=== PATIENT | female | born 1995 | race Caucasian/White ===

== ENCOUNTER 2017-03-04 21:00 | Inpatient (IN) | payer OTHER ==
--- NOTE | ~2017-03-04 | HP ---
Unit #: [id number] #: [id number] Patient: MAKENNA OSEI [id number] [place] [address] [id number] MR#: [id number] NAME: MAKENNA OSEI ROOM: P259 Age: 21 Sex: F Admission Date: 03/05/2017 : 1995 Attending Physician: Mian Hobson M.D. Admitting Physician: Mian Hobson M.D. Primary Care Physician: Generic Doctor Not In System HISTORY AND PHYSICAL HISTORY OF PRESENT ILLNESS Makenna is a 21 year old admitted to [address] [place] [address] with depression and verbalizing wanting to hurt herself. She is admitted totally irrational and belligerent. She is a poor historian so her history is taken from her chart. PAST MEDICAL HISTORY Nothing significant. PAST SURGICAL HISTORY Nothing reported. ALLERGIES No known drug allergies. SOCIAL HISTORY It is unclear if she smokes or drinks alcohol. She does admit to using marijuana. FAMILY HISTORY Medically not known. REVIEW OF SYSTEMS She does not answer any questions appropriately. There are no reports of nausea, vomiting or diarrhea. She has had no cough or increased temperature. CURRENT MEDICATIONS 1. Zyprexa Zydis 5 mg q 6 hours p.r.n. 2. Milk of Magnesia p.r.n. 3. Maalox p.r.n. 4. Tylenol p.r.n. PHYSICAL EXAMINATION GENERAL: Alert, petite in no apparent distress. VITAL SIGNS: Blood pressure 132/80, heart rate 80, respirations 16, temperature 98.6. SKIN: Warm and dry without rash or lesion. HEENT: Normocephalic. TMs not viewed. Oral and nasal passages clear. Conjunctivae clear. Pupils equal, round and reactive to light and accommodation. Extraocular movements intact. Unit #: [id number] #: [id number] Patient: MAKENNA OSEI NECK: Supple without lymphadenopathy or thyromegaly. HEART: Regular rate and rhythm without murmur. LUNGS: Clear. ABDOMEN: Soft, nontender. : Not done. EXTREMITIES: No evidence of cyanosis, clubbing or edema. Moves all extremities without focal deficit. NEUROLOGICAL: Unable to complete extended exam. She does move all extremities without focal deficit. 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 IMPRESSION Psychiatric admission. RECOMMENDATIONS PSYCHIATRIC: Per psychiatrist. MEDICAL: I see no contraindications to participating in facility's activities. MEDICAL PROGNOSIS Good. MEDICAL CONDITION Stable. Dictated by... Sena Lundberg P.A.-C. for Haja Gonzalez/claudine TD: 03/06/2017 00:41 JOB #: [id number] HISTORY AND PHYSICAL Page 1 of 1 X Sena Lundberg X HISTORY AND PHYSICAL
--- NOTE | ~2017-03-04 | A ---
[facility] Nutrition Therapy DATE: 03/05/17 Patient: PINO DENTON Physician: CASSIDY Address: [address] Room/Bed: [address], Zip: [place] [address] Admit Date: 03/05/17 Date of : [birth year] Height: Weight: NUTRITIONAL ASSESSMENT: REASON: UNINTENTIONAL WEIGHT LOSS PMH: HX SELF-HARM Anthropometrics: UNKNOWN Labs: NO LABS AVAILABLE Meds: THERESA Assessment: PATIENT IS A 21 Y/O FEMALE ADMITTED FOR SI AND AMS. PATIENT IS CURRENTLY UNEMPLOYED, LIVES WITH HER PARENTS, AND ATTENDS [facility]. SHE HAS HAD RECENT MARIJUANA USE AND SUSPECTED LSD USE, HOWEVER SHE DENIES CURRENT SUBSTANCE ABUSE. PER NEEDS ASSESSMENT PATIENT STATED A POOR APPETITE WITH AN UNKNOWN AMOUNT OF WEIGHT LOSS, AND SHE HAS NOT BEEN SLEEPING. IT WAS ALSO STATED THAT A FRIEND REPORTED THAT PATIENT HAD NOT EATEN OR SLEPT OVER THE WEEKEND. PATIENT'S CURRENT HT AND WT ARE UNKNOWN D/T PATIENT'S AGGRESSIVE BEHAVIORS AND SHE IS NOT COOPERATING. NURSING ESTIMATED PATIENT TO BE 61"-62" TALL AND 100-105#. THIS WOULD MAKE PATIENT'S BMI ~19. THERE ARE NO SKIN OR GI ISSUES NOTED ATT. PATIENT ADMITTED VERY RECENTLY SO THERE ARE NO PO INTAKES AVAILABLE. WILL CONTINUE TO MONITOR PATIENT'S PO INTAKES AND ANTHROPOMETRICS. SHE IS CURRENTLY ON A REGULAR DIET. Dx: UNINTENTIONAL WEIGHT LOSS R/T CURRENT CONDITION, AMS AEB DECREASED APPETITE, POSSIBLE WEIGHT LOSS, NUTRITIONAL RISK POINT Intervention: REGULAR DIET, MEDS PER MD, PSYCH Monitoring, Evaluation and Goals: 1. ADEQUATE PO INTAKES >50% OF MEALS 2. PREVENT, CORRECT MICRO/MACRO NUTRIENT DEFICIENCIES 3. WEIGHT; OBTAIN INITIAL WEIGHT MONITOR: WEIGHTS, LABS, PO/FLUID INTAKES Recommendations: 1. CONTINUE REGULAR DIET TOLERATED. 2. ENCOURAGE ADEQUATE PO AND FLUID INTAKES 3. OBTAIN INITIAL WEIGHT IF PATIENT IS COOPERATIVE 4. IF PO INTAKES ARE BELOW 50% OF MEALS PLEASE ORDER ENSURE BID TO PROMOTE ADEQUATE KCAL [facility] Nutrition Therapy DATE: 03/05/17 Patient: PINO FRANCISCO DENTON Physician: CASSIDY Address: [address] Room/Bed: [address], Zip: [place] [address] Admit Date: 03/05/17 Date of : [birth year] Height: Weight: AND PROTEIN INTAKES RD TO F/U PER PROTOCOL AND PRN R/T PATIENT MILDLY COMPROMISED Respectfully, ERNA BNEÍTEZ RD, LD Food and Nutrition[facility] cc: client file
--- NOTE | ~2017-03-04 | PN ---
Unit #: [id number] #: [id number] Patient: PINO OSEI [id number] [facility] [address] [place] [address] [id number] MR#: [id number] NAME: PINO OSEI ROOM: P259 Age: 21 Sex: F Admission Date: 03/05/2017 : 1995 Attending Physician: Mian Hobson M.D. Admitting Physician: Mian Hobson M.D. Primary Care Physician: Generic Doctor Not In System [facility] PROGRESS NOTES DATE 03/06/2017 DISCUSSION The patient is again very groggy having required p.r.n. medication early this morning. She does not arouse for attempted interview and remains hospitalized for 72 hour hold. Dictated by... Mian Hobson M.D. CB/marisol TD: 03/06/2017 15:53 JOB #: [id number] [facility] PROGRESS NOTES Page 1 of 1 X Mian Hobson MD PROGRESS NOTE
--- NOTE | ~2017-03-04 | PN ---
Unit #: [id number] #: [id number] Patient: PINO OSEI [id number] [facility] [address] [place] [address] [id number] I MR#: [id number] NAME: PINO OSEI ROOM: P259 Age: 21 Sex: F Admission Date: 03/05/2017 : 1995 Attending Physician: Mian Hobson M.D. Admitting Physician: Mian Hobson M.D. Primary Care Physician: Darya Doctor Not In System [facility] PROGRESS NOTES DATE 03/07/2017 DISCUSSION The patient remains floridly psychotic. She is at least out of her room and interacting with staff but required p.r.n. doses of Haldol, Ativan, and Benadryl last night after exhibiting [id number] behavior. The patient appears to be possibly exhibiting symptoms of a new-onset schizophrenia, but certainly this may be a substance-induced episode. At this point, I will begin nightly scheduled monotherapy with Zyprexa. The patient exhibits paranoia and is in significant thought blocking during today's interview, presenting with a prototypical "deer in the headlights" expression during attempted interview. Dictated by... Mian Hobson M.D. CB/wilmer TD: 03/07/2017 13:25 JOB #: [id number] [facility] PROGRESS NOTES Page 1 of 1 X Mian Hobson MD X PROGRESS NOTE
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
--- NOTE | ~2017-03-04 | PA ---
Unit #: [id number] #: [id number] Patient: PINO OSEI [id number] [place] [address] [id number] I MR#: [id number] NAME: PINO OSEI ROOM: P259 Age: 21 Sex: F Admission Date: 03/05/2017 : 1995 Date of Assessment: 03/05/2017 Attending Physician: Mian Hobson M.D. Admitting Physician: Mian Hobson M.D. Primary Care Physician: Generic Doctor Not In System PSYCHIATRIC ASSESSMENT IDENTIFYING INFORMATION The patient is a 21-year-old female admitted to the [facility] unit after parents had taken her to [facility] reporting bizarre behavior. CHIEF COMPLAINT None given. INFORMANT Chart. Patient could not be aroused for interview. HISTORY OF PRESENT ILLNESS The patient is a 21-year-old female admitted after her parents had taken her to the [facility] Emergency Room. The patient has apparently been exhibiting bizarre behavior since a breakup with a boyfriend approximately one week ago. There is some suspicion that patient may have recently used some hallucinogen. She does admit to use of Cannabis. When seen today patient has required a p.r.n. dose of Geodon and cannot be aroused for interview. There is apparently no other reported past psychiatric history. PAST PSYCHIATRIC HISTORY None reported. PAST MEDICAL HISTORY Noncontributory. MEDICATIONS None. ALLERGIES None. FAMILY HISTORY Noncontributory. SOCIAL HISTORY The patient is a high school graduate and lives with her parents. She is presently unemployed. She reports substance use as noted previously. MENTAL STATUS EXAMINATION At this time reveals the patient to be a small statured female. Unit #: [id number] #: [id number] Patient: PINO OSEI She covered her head with a sheet and refuses to relinquish it and does not waken for interview having received p.r.n. Geodon shortly prior to this evaluation. ASSETS AND LIABILITIES ASSETS: To be assessed. LIABILITIES: Lack of resources. DIAGNOSTIC IMPRESSION 1. Hallucinogen use disorder 2. Cannabis use disorder. 3. Psychotic disorder unspecified. PSYCHIATRIC PLAN/TREATMENT GOALS The patient remains hospitalized for safety and stabilization. There are any number of possible causes for the patient's current symptoms including new onset schizophrenia or bipolar disorder, intoxication or hallucinogens, briefly active psychosis, etc. At this point we will be conservative with medication. I will leave p.r.n. order for Zydis to be given as needed for psychosis and we will observe the patient and hopefully gain some degree of diagnostic clarification as her hospital course evolves. ESTIMATED LENGTH OF STAY Five to seven days. Dictated by... Mian Hobson M.D. BERNARDINO/claudine TD: 03/05/2017 22:58 JOB #: [id number] PSYCHIATRIC ASSESSMENT Page 1 of 1 X Mian Hobson MD X PSYCHIATRIC ASSESSMENT
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
== END 2017-03-09 16:10 | disposition home or self-care (01) | DRG 897 ==
LOC: P2L 03-05 05:55 → P1E 03-05 05:55 → P1S 03-05 15:38 → P2L 03-05 17:18
DX: F16.122 Hallucinogen abuse with intoxication with perceptual disturbance (principal); F29 Unspecified psychosis not due to a substance or known physiological condition; F12.10 Cannabis abuse, uncomplicated
CPT/HCPCS: 84703; J1200; J1630; J2060; J3486